=== PATIENT | male | born 1995 | race American Indian/Alaskan Native ===

== ENCOUNTER 2017-01-25 00:21 | Emergency (ER) | payer SELFPAY ==
[2017-01-25 00:32] VITALS: BP 138/92
== END 2017-01-25 04:34 | disposition left against medical advice (07) ==
LOC: ED 00:21
DX: S41.119A Laceration without foreign body of unspecified upper arm, initial encounter (principal); Z53.21 Procedure and treatment not carried out due to patient leaving prior to being seen by health care provider; X58.XXXA Exposure to other specified factors, initial encounter; Y93.9 Activity, unspecified; Y92.9 Unspecified place or not applicable; Y99.9 Unspecified external cause status

== ENCOUNTER 2017-01-26 21:53 | Inpatient (IN) | payer OTHER ==
[2017-01-26] MEDS ORDERED: TYLENOL ONE (22:01)
[2017-01-26] MEDS ORDERED: TYLENOL PO ONE (22:08)
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
[2017-01-26 23:33] LABS: Anion Gap 19 mmol/L; Blood Urea Nitrogen 12 mg/dL (9-20); Calcium 8.7 mg/dL (8.4-10.2); Carbon Dioxide 22 mmol/L (22-30); Chloride 99.3 mmol/L (98-107); Creatine Kinase 152 units/L (55-170); Glucose 90 mg/dL (75-100); Potassium 3.8 mmol/L (3.6-5.0); Sodium 136 mmol/L (137-145)
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
[2017-01-26] MEDS ORDERED: CLEOCIN 900 MG/50 mL 900 MG/50 ML BAG IV ONE (23:44)
[2017-01-26] MEDS ORDERED: NACL 0.9% 1000 ML 1,000 ML IV ONE (23:44)
[2017-01-26 23:47] LABS: Basophils % (Auto) 0.5 % (0.0-1.8); Eosinophils % (Auto) 0.6 % (0.0-4.3); Hematocrit 38.9 % (35.5-45.6); Hemoglobin 12.2 gm/dl (11.8-15.2); Mean Corpuscular HGB Conc 31 % (32-34); Mean Corpuscular Hemoglobin 26 pg (28-32); Mean Corpuscular Volume 83 fl (84-94); Platelet Count 351 K/mm3 (140-440); Red Cell Distribution Width 13.9 % (13.2-15.2); White Blood Count 19.9 K/mm3 (4.5-11.0)
[2017-01-26] MEDS ORDERED: TORADOL IV ONE (23:48)
[2017-01-27 00:32] LABS: Erythrocyte Sedimentation Rate 12 mm/Hr (0-20)
[2017-01-27] MEDS ORDERED: VANCOMYCIN/NS 1 GM/250 ML 1 GM/250 ML BAG IV ONE (00:35)
[2017-01-27] MEDS ORDERED: ZOFRAN IV PRN (02:04)
[2017-01-27] MEDS ORDERED: MILK OF MAGNESIA PO PRN (02:04)
[2017-01-27] MEDS ORDERED: TYLENOL PO PRN (02:04)
[2017-01-27] MEDS ORDERED: DULCOLAX PR PRN (02:04)
[2017-01-27] MEDS ORDERED: NACL 0.9% 1000 ML 1,000 ML ONE (02:27)
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
[2017-01-27] MEDS: VANCOMYCIN/NS 1 GM/250 ML 1 GM/250 ML BAG IV SCH ×3 (08:36→23:13)
--- NOTE | 2017-01-27 12:05 | Admit Criteria Form ---
Admission Criteria Documentation: CELLULITIS Clinical Indications for Admission to Inpatient Care (Place 'X' for any and all applicable criteria): Admission is indicated for ANY ONE of the following(1)(2)(3)(4)(5): [ ]I. Limb-threatening infection [ ]II. High-risk comorbid condition as indicated by ANY ONE of the following: [ ]a) Uncontrolled diabetes (eg, HbA1c greater than 10% (0.1)) [ ]b) Cirrhosis [ ]c) Neutropenia [ ]d) Asplenia [ ]e) Immunosuppression [ ]f) Symptomatic heart failure [ ]III. Failure of outpatient therapy as indicated by ALL of the following: [ ]a) Progression or no improvement after adequate trial (minimum of 48 hours, with longer period for stable lower extremity infection) [ ]b) Adequate antibiotic regimen as indicated by use of ANY ONE of the following: [ ]i) First-generation cephalosporin (e.g., cephalexin) [ ]ii) Antistaphylococcal penicillin (e.g., dicloxacillin) [ ]iii) Penicillin-allergic patient regimen (clindamycin, extended-spectrum fluoroquinolone, or doxycycline) [ ]iv) Resistant organism (eg, methicillin-resistant Staphylococcus aureus) regimen (6) [ ]c) Outpatient intravenous therapy regimen is not appropriate due to ANY ONE of the following. (7)(8)(9)(10): [ ]i) It was tried and was not successful (eg, progression of infection). [ ]ii) It is not available or cannot be arranged in a clinically appropriate time frame (e.g., the next day). [ ]iii) Clinical presentation (eg, acuity of infection, rapidity of progression, confirmed or suspected bacteremia) is judged to require ALL of the following: [ ]1) Immediate initiation of intravenous therapy ( eg, cannot wait for next day) [ ]2) Intensity of patient monitoring and observation (eg, vital sign measurement, checks for infection progression) that cannot be provided at other than inpatient level of care [ ]IV. Mental status changes [ ]V. Bacteremia [ ]. Hemodynamic instability [ ]VII. Suspected necrotizing soft tissue infection (e.g., gas in tissue)(11)( 12) [ ]VIII. Orbital infection (13)(14) [ ]IX. Associated surgical procedure (e.g., abscess drainage, debridement) not amenable to outpatient, emergency department, or observation care [ ]X. Cutaneous gangrene [ ]XI. High fever (temperature greater than 39.5 degrees C (103.1 degrees F) (oral)) not responsive to outpatient, emergency department, or observation care therapy [X ]XIII. Inpatient admission required rather than observation care (Also use Cellulitis: Observation Care as appropriate) because of ANY ONE of the following : [ ]a) Periorbital or perineal infection that is severe or worsening [X ]b) Severe pain requiring acute inpatient management [ ]c) IV fluid to replace significant ongoing (e.g., for over 24 hours) losses (greater than 3L/m2 per day) [ ]d) Compartment syndrome monitoring (17) [ ]e) Strict or protective (eg, laminar flow) isolation [ ]f) Urgent debridement or skin grafting [ ]g) Bone or joint debridement [ ]h) Immediate inpatient surgery [ ]i) Other condition, treatment or monitoring requiring inpatient admission Extended stay beyond goal length of stay may be needed for (1)(18): [ ]a) Necrotizing soft tissue infection or fasciitis [ ]b) Gram-negative infection [ ]c) Methicillin-resistant Staphylococcal aureus (MRSA) infection [ ]d) Peripheral venous insufficiency with cellulitis [ ]e) Extensive edema [ ]f) Sepsis or continued Hemodynamic instability [ ]g) Continued high fever or mental status change [ ]h) Bacteremia [ ]i) Active serious comorbid conditions ( eg, heart failure, renal insufficiency) The original [employer] content created by [employer] has been revised. The portions of the content which have been revised are identified through the use of italic text or in bold, and [facility] has neither reviewed nor approved the modified material. All other unmodified content is copyright [facility] [employer] Please see references footnoted in the original [facility] [employer] edition 2016 Admission Criteria Met: Yes
[2017-01-27] MEDS: LOVENOX SUB-Q SCH (12:38)
--- NOTE | 2017-01-27 16:09 | Event Note ---
Date: 01/27/17 He was seen and evaluated this morning, patient is complaining pain and swelling on the right arm. Patient is on IV antibiotics for sepsis. We'll continue his IV antibiotics.
[2017-01-27] MEDS: ZOSYN/NS 4.5GM/100ML 4.5 GM/100 ML VIAL IV SCH (20:45)
[2017-01-27] MEDS: PERCOCET 5/325 PO PRN (20:52)
[2017-01-27] MEDS: NACL 0.9% 1000 ML 1,000 ML IV SCH (23:17)
[2017-01-28] MEDS: ZOSYN/NS 4.5GM/100ML 4.5 GM/100 ML VIAL IV SCH ×3 (02:17→19:13)
[2017-01-28 07:56] LABS: Anion Gap 15 mmol/L; BUN/Creatinine Ratio 11.42; Blood Urea Nitrogen 8 mg/dL (9-20); Calcium 8.3 mg/dL (8.4-10.2); Carbon Dioxide 21 mmol/L (22-30); Chloride 107.9 mmol/L (98-107); Glucose 94 mg/dL (75-100); Potassium 3.9 mmol/L (3.6-5.0); Sodium 140 mmol/L (137-145)
[2017-01-28 08:03] LABS: Basophils % (Auto) 0.4 % (0.0-1.8); Eosinophils % (Auto) 2.8 % (0.0-4.3); Hematocrit 40.1 % (35.5-45.6); Hemoglobin 12.8 gm/dl (11.8-15.2); Mean Corpuscular HGB Conc 32 % (32-34); Mean Corpuscular Hemoglobin 27 pg (28-32); Mean Corpuscular Volume 83 fl (84-94); Platelet Count 311 K/mm3 (140-440); Red Blood Count 4.82 M/mm3 (3.65-5.03); Red Cell Distribution Width 13.9 % (13.2-15.2); White Blood Count 18.3 K/mm3 (4.5-11.0)
[2017-01-28] MEDS: VANCOMYCIN/NS 1 GM/250 ML 1 GM/250 ML BAG IV SCH ×2 (10:31→18:30)
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
[2017-01-28] MEDS: LOVENOX SUB-Q SCH (11:29)
[2017-01-28] MEDS: WELLBUTRIN XL PO SCH (11:31)
--- NOTE | 2017-01-28 12:35 | Progress Note ---
Assessment and Plan Assessment and plan: Sepsis Cellulitis Depression - Patient is on IV antibiotics, still WBC count is high - Psychiatry was consulted and recommended Wellbutrin for his depression DVT prophylaxis Lovenox Disposition Continue inpatient care History Interval history: Patient is complaining pain and swelling on the right upper extremity. Hospitalist Physical - Physical exam Narrative exam: Not in cardiopulmonary distress. The patient appeared well nourished and normally developed. Vital signs as documented. Head exam is unremarkable. No scleral icterus . Neck is without jugular venous distension, thyromegaly, or carotid bruits. Lungs are clear to auscultation. Cardiac exam reveals regular rate and Rhythm. First and second heart sounds normal. No murmurs, rubs or gallops. Abdominal exam reveals normal bowel sounds, no masses, no organomegaly and no aortic enlargement. Extremities significant for right upper extremity swelling and tenderness. 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 No focal weakness. - Constitutional Vitals: Temp Pulse Resp BP Pulse Ox 99.1 F 74 18 113/59 95 01/28/17 08:10 01/28/17 08:10 01/28/17 08:10 01/28/17 08:10 01/28/17 08:10 Results - Labs CBC & Chem 7: 01/28/17 07:12 01/28/17 07:12 Labs: Laboratory Last Values WBC 18.3 K/mm3 (4.5-11.0) H 01/28/17 07:12 RBC 4.82 M/mm3 (3.65-5.03) 01/28/17 07:12 Hgb 12.8 gm/dl (11.8-15.2) 01/28/17 07:12 Hct 40.1 % (35.5-45.6) 01/28/17 07:12 MCV 83 fl (84-94) L 01/28/17 07:12 MCH 27 pg (28-32) L 01/28/17 07:12 MCHC 32 % (32-34) 01/28/17 07:12 RDW 13.9 % (13.2-15.2) 01/28/17 07:12 Plt Count 311 K/mm3 (140-440) 01/28/17 07:12 Lymph % (Auto) 11.8 % (13.4-35.0) L 01/28/17 07:12 [place] % (Auto) 5.5 % (0.0-7.3) 01/28/17 07:12 Eos % (Auto) 2.8 % (0.0-4.3) 01/28/17 07:12 Baso % (Auto) 0.4 % (0.0-1.8) 01/28/17 07:12 Lymph # 2.2 K/mm3 (1.2-5.4) 01/28/17 07:12 [place] # 1.0 K/mm3 (0.0-0.8) H 01/28/17 07:12 Eos # 0.5 K/mm3 (0.0-0.4) H 01/28/17 07:12 Baso # 0.1 K/mm3 (0.0-0.1) 01/28/17 07:12 Seg Neutrophils % 79.5 % (40.0-70.0) H 01/28/17 07:12 Seg Neutrophils # 14.5 K/mm3 (1.8-7.7) H 01/28/17 07:12 ESR 12 mm/Hr (0-20) 01/26/17 22:50 Sodium 140 mmol/L (137-145) 01/28/17 07:12 Potassium 3.9 mmol/L (3.6-5.0) 01/28/17 07:12 Chloride 107.9 mmol/L (98-107) H 01/28/17 07:12 Carbon Dioxide 21 mmol/L (22-30) L 01/28/17 07:12 Anion Gap 15 mmol/L 01/28/17 07:12 BUN 8 mg/dL (9-20) L 01/28/17 07:12 Creatinine 0.7 mg/dL (0.8-1.5) L 01/28/17 07:12 Estimated GFR > 60 ml/min 01/28/17 07:12 BUN/Creatinine Ratio 11.42 % 01/28/17 07:12 Glucose 94 mg/dL (75-100) 01/28/17 07:12 Lactic Acid 0.80 mmol/L (0.7-2.0) 01/27/17 00:47 Calcium 8.3 mg/dL (8.4-10.2) L 01/28/17 07:12 Total Creatine Kinase 152 units/L (55-170) 01/26/17 22:50 C-Reactive Protein 4.50 mg/dL (0.00-1.30) H 01/27/17 00:47 NT-Pro-B Natriuret Pep 57.35 pg/mL (0-450) 01/26/17 22:50 Leukocytosis.
[2017-01-28] MEDS: PERCOCET 5/325 PO PRN (13:14)
[2017-01-28] MEDS: NACL 0.9% 1000 ML 1,000 ML IV SCH (13:37)
[2017-01-29] MEDS: VANCOMYCIN/NS 1 GM/250 ML 1 GM/250 ML BAG IV SCH (00:08)
[2017-01-29] MEDS: PERCOCET 5/325 PO PRN ×2 (00:30→11:53)
[2017-01-29] MEDS: ZOSYN/NS 4.5GM/100ML 4.5 GM/100 ML VIAL IV SCH ×3 (02:45→18:17)
[2017-01-29] MEDS: NACL 0.9% 1000 ML 1,000 ML IV SCH (07:42)
[2017-01-29 09:26] LABS: Basophils % (Auto) 0.6 % (0.0-1.8); Eosinophils % (Auto) 4.2 % (0.0-4.3); Hematocrit 41.7 % (35.5-45.6); Hemoglobin 13.2 gm/dl (11.8-15.2); Mean Corpuscular HGB Conc 32 % (32-34); Mean Corpuscular Hemoglobin 27 pg (28-32); Mean Corpuscular Volume 84 fl (84-94); Platelet Count 338 K/mm3 (140-440); Red Blood Count 4.95 M/mm3 (3.65-5.03); White Blood Count 13.5 K/mm3 (4.5-11.0)
[2017-01-29 09:47] LABS: Anion Gap 15 mmol/L; BUN/Creatinine Ratio 11.42; Blood Urea Nitrogen 8 mg/dL (9-20); Calcium 8.5 mg/dL (8.4-10.2); Carbon Dioxide 24 mmol/L (22-30); Chloride 108.4 mmol/L (98-107); Glucose 113 mg/dL (75-100); Potassium 4.2 mmol/L (3.6-5.0); Sodium 143 mmol/L (137-145)
--- NOTE | 2017-01-29 10:56 | Cat Scan Report ---
CT UPPER EXTREMITY RIGHT WITHOUT CONTRAST HISTORY: Pain and swelling of the right upper extremity. TECHNIQUE: Helical CT in 1.25 mm intervals was performed from the right shoulder to the right wrist. Sagittal and coronal reformatted images. FINDINGS: Correlation is made with the right forearm x-ray performed 01/26/17. There is nonspecific subcutaneous edema in the anteromedial right forearm. There is no obvious radiopaque foreign body or large abscess. Please note no IV contrast was administered. The bony and muscular structures are within normal limits. No joint pathology. IMPRESSION: Nonspecific soft tissue swelling/edema in the right forearm as described. This most likely represents a cellulitis.
--- NOTE | 2017-01-29 11:05 | Progress Note ---
Assessment and Plan Assessment and plan: Sepsis Cellulitis Depression - Patient is on IV antibiotics, still WBC count is high - Psychiatry was consulted and recommended Wellbutrin for his depression DVT prophylaxis Lovenox Disposition - Will discharge him most likely tomorrow. History Interval history: Patient is complaining pain and swelling on the right upper extremity. Patient looks depressed. Hospitalist Physical - Physical exam Narrative exam: Not in cardiopulmonary distress. The patient appeared well nourished and normally developed. Vital signs as documented. Head exam is unremarkable. No scleral icterus . Neck is without jugular venous distension, thyromegaly, or carotid bruits. Lungs are clear to auscultation. Cardiac exam reveals regular rate and Rhythm. First and second heart sounds normal. No murmurs, rubs or gallops. Abdominal exam reveals normal bowel sounds, no masses, no organomegaly and no aortic enlargement. Extremities significant for right upper extremity swelling and tenderness. PRESIDENT + PUBLISHER: Alert and oriented 3. No focal weakness. - Constitutional Vitals: Temp Pulse Resp BP Pulse Ox 98.0 F 65 20 108/63 98 01/29/17 08:00 01/29/17 08:00 01/29/17 08:00 01/29/17 08:00 01/29/17 08:00 Results - Labs CBC & Chem 7: 01/29/17 08:50 01/29/17 08:50 Labs: Laboratory Last Values WBC 13.5 K/mm3 (4.5-11.0) H 01/29/17 08:50 RBC 4.95 M/mm3 (3.65-5.03) 01/29/17 08:50 Hgb 13.2 gm/dl (11.8-15.2) 01/29/17 08:50 Hct 41.7 % (35.5-45.6) 01/29/17 08:50 MCV 84 fl (84-94) 01/29/17 08:50 MCH 27 pg (28-32) L 01/29/17 08:50 MCHC 32 % (32-34) 01/29/17 08:50 RDW 14.0 % (13.2-15.2) 01/29/17 08:50 Plt Count 338 K/mm3 (140-440) 01/29/17 08:50 Lymph % (Auto) 17.9 % (13.4-35.0) 01/29/17 08:50 [place] % (Auto) 6.1 % (0.0-7.3) 01/29/17 08:50 Eos % (Auto) 4.2 % (0.0-4.3) 01/29/17 08:50 Baso % (Auto) 0.6 % (0.0-1.8) 01/29/17 08:50 Lymph # 2.4 K/mm3 (1.2-5.4) 01/29/17 08:50 [place] # 0.8 K/mm3 (0.0-0.8) 01/29/17 08:50 Eos # 0.6 K/mm3 (0.0-0.4) H 01/29/17 08:50 Baso # 0.1 K/mm3 (0.0-0.1) 01/29/17 08:50 Seg Neutrophils % 71.2 % (40.0-70.0) H 01/29/17 08:50 Seg Neutrophils # 9.6 K/mm3 (1.8-7.7) H 01/29/17 08:50 ESR 12 mm/Hr (0-20) 01/26/17 22:50 Sodium 143 mmol/L (137-145) 01/29/17 08:50 Potassium 4.2 mmol/L (3.6-5.0) 01/29/17 08:50 Chloride 108.4 mmol/L (98-107) H 01/29/17 08:50 Carbon Dioxide 24 mmol/L (22-30) 01/29/17 08:50 Anion Gap 15 mmol/L 01/29/17 08:50 BUN 8 mg/dL (9-20) L 01/29/17 08:50 Creatinine 0.7 mg/dL (0.8-1.5) L 01/29/17 08:50 Estimated GFR > 60 ml/min 01/29/17 08:50 BUN/Creatinine Ratio 11.42 % 01/29/17 08:50 Glucose 113 mg/dL (75-100) H 01/29/17 08:50 Lactic Acid 0.80 mmol/L (0.7-2.0) 01/27/17 00:47 Calcium 8.5 mg/dL (8.4-10.2) 01/29/17 08:50 Total Creatine Kinase 152 units/L (55-170) 01/26/17 22:50 C-Reactive Protein 4.50 mg/dL (0.00-1.30) H 01/27/17 00:47 NT-Pro-B Natriuret Pep 57.35 pg/mL (0-450) 01/26/17 22:50 Vancomycin Trough 8.7 ug/mL (5.0-20.0) 01/29/17 08:50 - Imaging and Cardiology Imaging and Cardiology: CT of the right upper extremity was done to evaluate if there is any abscess, showed only cellulitis.
[2017-01-29] MEDS: LOVENOX SUB-Q SCH (11:54)
[2017-01-29] MEDS: WELLBUTRIN XL PO SCH (11:54)
[2017-01-29] MEDS: VANCOMYCIN 1,250 MG in NACL 0.9% 250ML 250 ML IV SCH ×2 (14:25→22:43)
[2017-01-29 22:48] VITALS: BP 122/78
[2017-01-30] MEDS: ZOSYN/NS 4.5GM/100ML 4.5 GM/100 ML VIAL IV SCH ×2 (02:50→10:50)
[2017-01-30] MEDS: NACL 0.9% 1000 ML 1,000 ML IV SCH (03:00)
[2017-01-30] MEDS: VANCOMYCIN 1,250 MG in NACL 0.9% 250ML 250 ML IV SCH (06:32)
[2017-01-30 07:40] LABS: Basophils % (Auto) 0.7 % (0.0-1.8); Eosinophils % (Auto) 4.6 % (0.0-4.3); Hematocrit 39.2 % (35.5-45.6); Hemoglobin 12.3 gm/dl (11.8-15.2); Mean Corpuscular HGB Conc 31 % (32-34); Mean Corpuscular Hemoglobin 26 pg (28-32); Mean Corpuscular Volume 83 fl (84-94); Platelet Count 363 K/mm3 (140-440); Red Blood Count 4.71 M/mm3 (3.65-5.03); Red Cell Distribution Width 14.2 % (13.2-15.2)
[2017-01-30 07:59] LABS: Anion Gap 13 mmol/L; BUN/Creatinine Ratio 8.57; Blood Urea Nitrogen 6 mg/dL (9-20); Calcium 8.6 mg/dL (8.4-10.2); Carbon Dioxide 26 mmol/L (22-30); Chloride 107.1 mmol/L (98-107); Glucose 107 mg/dL (75-100); Potassium 4.3 mmol/L (3.6-5.0); Sodium 142 mmol/L (137-145)
--- NOTE | 2017-01-30 09:07 | Discharge Summary ---
Providers - Providers Date of Admission: 01/27/17 02:04 Date of discharge: 01/30/17 Attending physician: LESLY QUICK MD 01/27/17 07:48 Consult to Wound/ET Nurse [CONS] Urgent Reason For Exam: wound eval 01/27/17 17:27 psychiatry consult [Consult to Mental Health] [CONS] Routine Reason For Exam: Depression Place consult to:: Anand Notified:: yes Phone number called:: [phone] Was contact made?: Yes If yes, spoke with:: Rima Time called:: 17:28 Primary care physician: FIRE TENDER Hospitalization Reason for admission: Sepsis, Cellulitis, depression Condition: Stable Pertinent studies: CT and x-ray of the right arm showed no abscess or or bone infection. Hospital course: 21-year-old man with no medical history came to the emergency room because he states that he fell through a glass window and sustained laceration to the right arm. He then developed swelling, pain, fever and chills a comes emergency room for further evaluation. Patient has leukocytosis, fever and x- ray of the right upper arm shows soft tissue swelling. Patient is admitted for sepsis, cellulitis, depression. He was treated with IV antibiotics, blood cultures negative fever and tachycardia subsided, WBC trending down. CT showed no abscess. Patient is stable to be discharged with by mouth antibiotics. Patient was evaluated by psychiatry and they put him on Wellbutrin and given a prescription. Patient is advised to have follow-up with primary care physician. Patient said he is living in a motel. I have discussed his management about discharge planning. Disposition: TO HOME OR SELFCARE Time spent for discharge: 31 minutes - Discharge Diagnoses (1) Depression Status: Acute Qualifiers: Depression Type: D Major depression recurrence: M Active/Remission status : A Major depression episode severity: M Psychotic features: P Trimester: T (2) Cellulitis of forearm, right Status: Acute Core Measure Documentation - Palliative Care Palliative Care/ Comfort Measures: Not Applicable - Core Measures Any of the following diagnoses?: none Exam - Physical Exam Narrative exam: Not in cardiopulmonary distress. The patient appeared well nourished and normally developed. Vital signs as documented. Head exam is unremarkable. No scleral icterus . Neck is without jugular venous distension, thyromegaly, or carotid bruits. Lungs are clear to auscultation. Cardiac exam reveals regular rate and Rhythm. First and second heart sounds normal. No murmurs, rubs or gallops. Abdominal exam reveals normal bowel sounds, no masses, no organomegaly and no aortic enlargement. Extremities significant for right upper extremity swelling and tenderness ( maekedly decreased from admission condition). HUMAN RESOURCE ASSISTANT: Alert and oriented 3. No focal weakness. - Constitutional Vitals: Temp Pulse Resp BP Pulse Ox 98.2 F 84 20 122/78 99 01/29/17 22:00 01/29/17 22:00 01/29/17 22:00 01/29/17 22:00 01/29/17 22:00 Plan Activity: no restrictions Weight Bearing Status: Full Weight Bearing Diet: regular Follow up with: PRIMARY CARE, [Primary Care Provider] - 7 Days Prescriptions: buPROPion XL [Wellbutrin XL] 150 mg PO QAM #30 tablet Cephalexin 500 mg PO BID #14 capsule oxyCODONE /ACETAMINOPHEN [Percocet 5/325 mg] 1 tab PO Q6H PRN #12 tablet PRN Reason: Pain, Moderate (4-6)
[2017-01-30] MEDS: WELLBUTRIN XL PO SCH (10:49)
[2017-01-30] MEDS: LOVENOX SUB-Q SCH (10:50)
== END 2017-01-30 11:50 | disposition home or self-care (01) | DRG 872 ==
LOC: ED 21:53 → 3A 01-27 02:04
PROVIDERS: ADMIT Internal Medicine; ATTEND Internal Medicine
DX: A41.9 Sepsis, unspecified organism (principal); L03.113 Cellulitis of right upper limb; F32.9 Major depressive disorder, single episode, unspecified; S51.811A Laceration without foreign body of right forearm, initial encounter; Z82.49 Family history of ischemic heart disease and other diseases of the circulatory system; Z81.8 Family history of other mental and behavioral disorders
CPT/HCPCS: 36415; 80048; 80202; 82140; 82550; 83880; 85025; 85652; 86140; 87040; 96365; 96367; 96375; J1650; J1885; J2543; J3370; J7030; J7050